=== PATIENT | female | born 1980 | race Hispanic/Latino ===

== ENCOUNTER 2016-08-11 05:58 | Day surgery (SDC) | payer OTHER ==
[~2016-08-11] VITALS: Ht 165.1 cm; Wt 127.0 kg
[2016-08-11] MEDS ORDERED: PERCOCET 10/31 COMBO PO (08:55)
[2016-08-11 19:22] VITALS: BP 126/80
== END 2016-08-11 13:35 | disposition home or self-care (01) | DRG 489 ==
LOC: ORM 05:58
PROVIDERS: ATTEND Orthopaedic Surgery
PROC: 0SBD4ZZ Excision of Left Knee Joint, Percutaneous Endoscopic Approach (ICD-10-PCS; principal; 2016-08-11)
PROC: 0SBD4ZZ Excision of Left Knee Joint, Percutaneous Endoscopic Approach (ICD-10-PCS; 2016-08-11)
DX: S83.222A Peripheral tear of medial meniscus, current injury, left knee, initial encounter (principal); M65.862 Other synovitis and tenosynovitis, left lower leg; S83.282A Other tear of lateral meniscus, current injury, left knee, initial encounter; M67.52 Plica syndrome, left knee; M94.262 Chondromalacia, left knee; X58.XXXA Exposure to other specified factors, initial encounter